=== PATIENT | female | born 1960 | race Caucasian/White ===

== ENCOUNTER 2017-04-18 13:04 | Observation (INO) | payer MEDICAID, OTHER ==
[2017-04-18 13:10] VITALS: BMI 24.7
--- NOTE | 2017-04-18 13:44 | C.PDOC ---
History Of Present Illness Patient is a 56 y/o female presents to the ED for evaluation of left sided chest pain radiating down to left shoulder and arm. Pt also reports associated nausea, and tingling sensation to left arm and fingers. Pt was given 4 Aspirin' s in field. Notes working at a [employer]. Otherwise, denies any shortness of breath, headache, fever, chills cough, vomiting, diarrhea, diaphoresis, jaw pain , back pain, lower extremity pain/swelling, recent travels, recent surgery, or recent prolonged immobilization. Time Seen by Provider: 04/18/17 13:36 Chief Complaint (Nursing): Dizziness/Lightheaded History Per: Patient History/Exam Limitations: no limitations Onset/Duration Of Symptoms: Days Current Symptoms Are (Timing): Still Present Fall Associated With With Symptoms: No Severity: Moderate Recent travel outside of the [place]: No Additional History Per: Patient Past Medical History Reviewed: Historical Data, Nursing Documentation, Vital Signs Vital Signs: Last Vital Signs Temp 98.2 F 04/18/17 13:10 Pulse 65 04/18/17 13:10 Resp 20 04/18/17 13:10 BP 103/60 04/18/17 13:10 Pulse Ox 100 04/18/17 16:20 Surgical History: Cholecystectomy Family History: States: Unknown Family Hx - Social History Hx Alcohol Use: No Hx Substance Use: No - Immunization History Hx Tetanus Toxoid Vaccination: Yes Hx Influenza Vaccination: Yes Hx Pneumococcal Vaccination: No Review Of Systems Except As Marked, All Systems Reviewed And Found Negative. Constitutional: Negative for: Fever, Chills Cardiovascular: Positive for: Chest Pain. Negative for: Palpitations Respiratory: Negative for: Cough, Shortness of Breath, Hemoptysis, Sputum Gastrointestinal: Positive for: Nausea. Negative for: Vomiting, Abdominal Pain , Diarrhea Musculoskeletal: Positive for: Shoulder Pain (left), Arm Pain (left). Negative for: Neck Pain, Back Pain Skin: Negative for: Rash, Bruising Neurological: Positive for: Other (tingling sensation to left arm and fingers). Negative for: Weakness, Numbness, Headache, Dizziness Physical Exam - Physical Exam Appears: Non-toxic, No Acute Distress Skin: Normal Color, Warm, Dry, No Rash Head: Atraumatic, Normacephalic Eye(s): bilateral: Normal Inspection, EOMI Oral Mucosa: Moist Neck: Normal ROM, Supple Chest: Symmetrical, No Deformity, No Tenderness Cardiovascular: Rhythm Regular, No Murmur Respiratory: Normal Breath Sounds, No Rales, No Rhonchi, No Wheezing Gastrointestinal/Abdominal: Soft, No Tenderness Extremity: Normal ROM (FROM of left shoulder, arm, and hand), Tenderness (Left anterior shoulder), No Pedal Edema, No Calf Tenderness, Capillary Refill (<2 sec.), No Deformity, No Swelling Extremity: Bilateral: Atraumatic, Normal ROM Neurological/Psych: Oriented x3, Normal Speech, Normal Cognition, Normal Motor, Normal Sensation ED Course And Treatment - Laboratory Results Result Diagrams: 04/18/17 13:49 04/18/17 13:49 Lab Interpretation: Normal (trop neg.) ECG: Interpreted By Me ECG Rhythm: Sinus Rhythm ECG Interpretation: Normal Rate From EC (bpm) O2 Sat by Pulse Oximetry: 100 (RA) Pulse Ox Interpretation: Normal - Radiology CXR: Interpreted by Me CXR Interpretation: Yes: No Acute Disease Progress Note: asa (given in the field) lovenox, protonix, zofran Reevaluation Time: 14:37 Reassessment Condition: Improved Medical Decision Making Medical Decision Makin: dw Dr. Pitts- Hospitalist Senior Security Analyst- ok to Tele Obs. Disposition Doctor Will See Patient In The: Hospital Counseled Patient/Family Regarding: Studies Performed, Diagnosis - Disposition Disposition: HOSPITALIZED Disposition Time: 14:38 Condition: GOOD - Clinical Impression Clinical Impression: Chest discomfort - Scribe Statement The provider has reviewed the documentation as recorded by the Barrie Venegas All medical record entries made by the Lillianibdann were at my direction and personally dictated by me. I have reviewed the chart and agree that the record accurately reflects my personal performance of the history, physical exam, medical decision making, and the department course for this patient. I have also personally directed, reviewed, and agree with the discharge instructions and disposition.
[2017-04-18 13:52] LABS: BASO # 0.1 K/uL (0.0-0.2); BASO % 1.2 % (0.0-2.0); EOS # 0.1 K/uL (0.0-0.7); EOS % 1.7 % (0.0-4.0); HEMATOCRIT 41.5 % (34.0-47.0); LYMPH # 3.3 K/uL (1.0-4.3); LYMPH % 37.2 % (20.0-40.0); MEAN CELL VOLUME 87.1 fL (81.0-99.0); MEAN CORPUSCULAR HEMOGLOBIN 28.7 pg (27.0-31.0); MEAN PLATELET VOLUME 8.7 fL (7.2-11.7); MONO # 0.4 K/uL (0.0-0.8); MONO % 4.7 % (0.0-10.0); RED CELL DISTRIBUTION WIDTH 13.3 % (11.5-14.5); WHITE BLOOD COUNT 8.8 K/uL (4.8-10.8)
[2017-04-18 14:01] LABS: CHLORIDE 103 mmol/L (98-107); POTASSIUM 3.4 mmol/L (3.6-5.2); SODIUM 139 mmol/L (132-148)
[2017-04-18 14:03] LABS: BILIRUBIN,TOTAL 0.8 mg/dL (0.2-1.3); GFR AFRICAN-AMERICAN > 60
[2017-04-18 14:04] LABS: ALB/GLOB RATIO 1.2 (1.0-2.1); ALKALINE PHOSPHATASE 73 U/L (38-126); ALT/SGPT 23 U/L (9-52); AST/SGOT 19 U/L (14-36); BLOOD UREA NITROGEN 14 mg/dL (7-17); CALCIUM 9.3 mg/dl (8.6-10.4); CARBON DIOXIDE 20 mmol/L (22-30); GLUCOSE,RANDOM 124 mg/dL (65-105); TOTAL PROTEIN 7.4 g/dL (6.3-8.3)
[2017-04-18] MEDS ORDERED: Enoxaparin 40 mg Syringe SC STA (14:32)
--- NOTE | 2017-04-18 14:58 | RAD ---
HISTORY: SOB COMPARISON: None available. TECHNIQUE: Chest, one view. FINDINGS: LUNGS: No focal consolidation. Please note that chest x-ray has limited sensitivity for the detection of pulmonary masses. PLEURA: No significant pleural effusion identified. No definite pneumothorax . CARDIOVASCULAR: The cardiomediastinal silhouette appears within normal limits of size. OSSEOUS STRUCTURES: No acute osseous abnormality identified. VISUALIZED UPPER ABDOMEN: Unremarkable. OTHER FINDINGS: None. IMPRESSION: No focal consolidation, significant pleural effusion, or definite pneumothorax identified.
[2017-04-18 15:10] LABS: URINE BILIRUBIN NEGATIVE (NEGATIVE); URINE BLOOD NEGATIVE (NEGATIVE); URINE COLOR Yellow (YELLOW); URINE GLUCOSE (UA) NORMAL (Normal); URINE KETONE NEGATIVE (NEGATIVE); URINE LEUKOCYTE ESTERASE 1+ Leu/uL (Negative); URINE PROTEIN NEGATIVE (NEGATIVE); URINE UROBILINOGEN NORMAL mg/dL (0.2-1.0); WBC URINE 14 /hpf (0-5)
[2017-04-18] MEDS ORDERED: Enoxaparin 40 mg Syringe SC SCH (17:45)
[2017-04-18] MEDS ORDERED: Iodixanol 320 MG/ML 100 ML BOTTLE IV ONE (18:14)
--- NOTE | 2017-04-18 18:23 | CP.PCM.CON ---
History of Present Illness - History of Present Illness History of Present Illness: consultation for evaluation of chest pain HPI: 56-year-old female with past medical history significant for cervical and lumbar disc herniation presented with a complaint of chest pain accompanied with lightheadedness and dizziness. Patient described having episode of nausea and emesis 2 chest pain clubbing in character with no radiation no associated exacerbation or relieving factors she felt numbness and tingling in her left forearm and hand. Had a similar episode 2 years ago denies any fever chills nausea vomiting diarrhea. Past medical history as stated above significant cervical and lumbar disc herniations past surgical history significant for cholecystectomy for and left wrist fracture family history significant for dementia asthma and diabetes mellitus. 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 Medications denies allergies spider bite. Review of Systems - Review of Systems All systems: reviewed and no additional remarkable complaints except - Constitutional Constitutional: As Per HPI - EENT Eyes: As Per HPI Nose/Mouth/Throat: As Per HPI - Breasts Breasts: As Per HPI - Cardiovascular Cardiovascular: As Per HPI, Chest Pain - Respiratory Respiratory: As Per HPI - Gastrointestinal Gastrointestinal: As Per HPI, Nausea - Genitourinary Genitourinary: As Per HPI - Reproductive: Female Reproductive:Female: As Per HPI - Menstruation Menstruation: As Per HPI - Musculoskeletal Musculoskeletal: As Per HPI - Integumentary Integumentary: As Per HPI - Neurological Neurological: As Per HPI - Psychiatric Psychiatric: As Per HPI - Endocrine Endocrine: As Per HPI - Hematologic/Lymphatic Hematologic: As Per HPI Past Patient History - Past Social History Smoking Status: Never Smoked - PSYCHIATRIC Hx Substance Use: No - SURGICAL HISTORY Hx Cholecystectomy: Yes - ANESTHESIA Hx Anesthesia: Yes Hx Anesthesia Reactions: No Meds Allergies/Adverse Reactions: Allergies Allergy/AdvReac Type Severity Reaction Status Date / Time No Known Allergies Allergy Verified 04/18/17 13:09 - Medications Medications: Current Medications Acetaminophen (Tylenol 325mg Tab) 650 mg PO Q6 PRN PRN Reason: Fever >100.4 F Docusate Sodium (Colace) 100 mg PO BID PRN PRN Reason: Constipation Enoxaparin Sodium (Lovenox) 40 mg SC DAILY [facility] Famotidine (Pepcid) 20 mg PO BID [facility] Nitroglycerin (Nitrostat Sl Tab) 0.4 mg SL Q5M PRN PRN Reason: Pain, moderate (4-7) Ondansetron HCl (Zofran Inj) 4 mg IVP Q6 PRN PRN Reason: Nausea/Vomiting Sucralfate (Carafate Tab) 1 gm PO BID [facility] Physical Exam - Constitutional Appears: Well - Head Exam Head Exam: ATRAUMATIC, NORMAL INSPECTION, NORMOCEPHALIC - Eye Exam Eye Exam: EOMI, Normal appearance, PERRL Pupil Exam: NORMAL ACCOMODATION, PERRL - ENT Exam ENT Exam: Mucous Membranes Moist, Normal Exam - Neck Exam Neck exam: Positive for: Normal Inspection - Respiratory Exam Respiratory Exam: Clear to Auscultation Bilateral, NORMAL BREATHING PATTERN - Cardiovascular Exam Cardiovascular Exam: REGULAR RHYTHM, RRR, +S1, +S2, Systolic Murmur - GI/Abdominal Exam GI & Abdominal Exam: Normal Bowel Sounds, Soft. absent: Tenderness - Exam Bimanual exam: NORMAL BIMANUAL EXAM - Extremities Exam Extremities exam: Positive for: normal inspection - Back Exam Back exam: NORMAL INSPECTION - Neurological Exam Neurological exam: Alert, CN II-XII Intact, Normal Gait, Oriented x3, Reflexes Normal - Psychiatric Exam Psychiatric exam: Normal Affect, Normal Mood - Skin Skin Exam: Dry, Intact, Normal Color, Warm Results - Vital Signs Recent Vital Signs: Last Vital Signs Temp 98.2 F 04/18/17 13:10 Pulse 69 04/18/17 17:14 Resp 17 04/18/17 17:14 BP 122/62 04/18/17 17:14 Pulse Ox 98 04/18/17 17:14 - Labs Result Diagrams: 04/19/17 01:27 04/19/17 01:27 Labs: Laboratory Results - last 24 hr 04/18/17 04/18/17 14:51 14:51 Urine Color Yellow Urine Clarity Hazy Urine pH 7.0 Ur Specific [place] 1.016 Urine Protein Negative Urine Glucose (UA) Normal Urine Ketones Negative Urine Blood Negative Urine Nitrate Positive H Urine Bilirubin Negative Urine Urobilinogen Normal Ur Leukocyte Esterase 1+ H Urine WBC (Auto) 14 H Amorphous Sediment Rare H Urine Opiates Screen Negative Urine Methadone Screen Negative Ur Barbiturates Screen Negative Ur Phencyclidine Scrn Negative Ur Amphetamines Screen Negative U Benzodiazepines Scrn Negative U Oth Cocaine Metabols Negative U Cannabinoids Screen Negative Assessment & Plan (1) Chest discomfort Assessment and Plan: atypical features ACS ruled out with serial enzymes x 3 EKG - NSR no acute ST-T wave changes stable to dc home outpt f/u in 1-2 weeks for stress testing Status: Acute
[2017-04-18 18:49] VITALS: O2SAT 97
--- NOTE | 2017-04-18 19:13 | CT ---
EXAM: CT Angiography Chest With Intravenous Contrast EXAM DATE/TIME: Exam ordered 04/18/2017 5:33 PM CLINICAL HISTORY: 56 years old, female; Pain and signs and symptoms; Chest pressure; Additional info: R/O dissection TECHNIQUE: Axial computed tomographic angiography images of the chest with intravenous contrast using pulmonary embolism protocol. All CT scans at this facility use one or more dose reduction techniques, viz.: automated exposure control; ma/kV adjustment per patient size (including targeted exams where dose is matched to indication; i.e. head); or iterative reconstruction technique. MIP reconstructed images were created and reviewed. Coronal and sagittal reformatted images were created and reviewed. CONTRAST: 100 mL of visipaque 320 administered intravenously. COMPARISON: No relevant prior studies available. FINDINGS: Pulmonary arteries: Unremarkable. No pulmonary embolism. Aorta: No acute findings. No thoracic aortic aneurysm. Lungs: Coarse linear density at the left lung base suggests an area of discoid atelectasis or scar. No mass. Pleural space: Unremarkable. No significant effusion. No pneumothorax. Heart: The small bowel pericardial fluid/thickening is noted. No evidence of RV dysfunction. Mediastinum: There is a small hiatal hernia. Bones/joints: No acute fracture. No dislocation. Soft tissues: Unremarkable. Lymph nodes: Unremarkable. No enlarged lymph nodes. Gallbladder and bile ducts: Surgical clips are seen in the gallbladder fossa. IMPRESSION: 1. No evidence of aortic dissection. No evidence of pulmonary embolism. Normal CTA the chest. 2. Discoid atelectasis at the left base
--- NOTE | 2017-04-18 19:37 | CP.PCM.HP ---
History of Present Illness - History of Present Illness History of Present Illness: PGY [address] Steve 56 Female presents to ED with chest pain. She reported that she was feeling light headed and dizzy so she sat down to eat and the chest pain began after she ate. The patient reported nausea and vomiting nonbloody emesis twice. Pt describes the chest pain as throbbing in nature with no radiation. She denies taking anything for the pain and does not report exacerbating the pain. The patient also reports feeling cold during the episode and had numbness and tingling in her left forearm and hand. The patient reports a similar episode occurring 3 years ago. Patient reports N/V, diaphoresis, weakness, dizziness, double vision, feeling cold, cloudy urine. Patient denies fever, chills, D/C, SOB, cough, changes in speech, headache, confusion, rash, recent falls, trauma, no sick contacts, no recent travel. PMH: Cervical and Lumbar disc herniations (C2,C3. L5 and ??? 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 Drinks ocassionally. Not sexually active. Med: denies All: spider bite Immunizations: up to date Present on Admission - Present on Admission Any Indicators Present on Admission: No History of DVT/PE: No History of Uncontrolled Diabetes: No Urinary Catheter: No Decubitus Ulcer Present: No History Surgical Site Infection Following: None Review of Systems - Constitutional Constitutional: As Per HPI - EENT Eyes: As Per HPI Ears: As Per HPI - Breasts Breasts: As Per HPI - Cardiovascular Cardiovascular: As Per HPI - Respiratory Respiratory: As Per HPI - Gastrointestinal Gastrointestinal: As Per HPI - Genitourinary Genitourinary: As Per HPI - Reproductive: Female Reproductive:Female: As Per HPI - Menstruation Menstruation: As Per HPI - Musculoskeletal Musculoskeletal: As Per HPI - Integumentary Integumentary: As Per HPI - Neurological Neurological: As Per HPI - Psychiatric Psychiatric: As Per HPI - Endocrine Endocrine: As Per HPI - Hematologic/Lymphatic Hematologic: As Per HPI Past Patient History - Past Social History Smoking Status: Never Smoked - PSYCHIATRIC Hx Substance Use: No - SURGICAL HISTORY Hx Cholecystectomy: Yes - ANESTHESIA Hx Anesthesia: Yes Hx Anesthesia Reactions: No Meds Allergies/Adverse Reactions: Allergies Allergy/AdvReac Type Severity Reaction Status Date / Time No Known Allergies Allergy Verified 04/18/17 13:09 Physical Exam - Constitutional Appears: Well, Non-toxic, No Acute Distress - Head Exam Head Exam: ATRAUMATIC, NORMAL INSPECTION, NORMOCEPHALIC - Eye Exam Eye Exam: EOMI - ENT Exam ENT Exam: Mucous Membranes Moist - Respiratory Exam Respiratory Exam: Clear to Auscultation Bilateral. absent: Rales, Rhonchi, Wheezes, Stridor - Cardiovascular Exam Cardiovascular Exam: REGULAR RHYTHM. absent: Systolic Murmur - GI/Abdominal Exam GI & Abdominal Exam: Normal Bowel Sounds, Soft, Tenderness (mild in LLQ). absent: Distended - Neurological Exam Neurological exam: Alert, CN II-XII Intact, Normal Gait - Psychiatric Exam Psychiatric exam: Anxious, Normal Affect, Normal Mood - Skin Skin Exam: Dry, Normal Color, Warm Results - Vital Signs Recent Vital Signs: Last Vital Signs Temp 97 F L 04/18/17 18:00 Pulse 64 04/18/17 18:00 Resp 20 04/18/17 18:00 BP 112/73 04/18/17 18:00 Pulse Ox 97 04/18/17 18:00 - Labs Result Diagrams: 04/18/17 13:49 04/18/17 13:49 Labs: Laboratory Results - last 24 hr 04/18/17 04/18/17 14:51 14:51 Urine Color Yellow Urine Clarity Hazy Urine pH 7.0 Ur Specific [place] 1.016 Urine Protein Negative Urine Glucose (UA) Normal Urine Ketones Negative Urine Blood Negative Urine Nitrate Positive H Urine Bilirubin Negative Urine Urobilinogen Normal Ur Leukocyte Esterase 1+ H Urine WBC (Auto) 14 H Amorphous Sediment Rare H Urine Opiates Screen Negative Urine Methadone Screen Negative Ur Barbiturates Screen Negative Ur Phencyclidine Scrn Negative Ur Amphetamines Screen Negative U Benzodiazepines Scrn Negative U Oth Cocaine Metabols Negative U Cannabinoids Screen Negative Assessment & Plan - Assessment and Plan (Free Text) Assessment: Chest Pain * R/O ACS * F/U ROMIs * F/U EKG * Cardio (Pranav) - F/U reccs * F/U Lipid Panel * GERD * Protonix * Sucralfate * R/O Dissection * F/U CTA Hypoglycemia * F/U A1c PPX * Lovenox 40sc QD * Protonix - Date & Time Date: 04/18/17 Time: 19:37
[2017-04-18 20:39] LABS: CHOLESTEROL 182 mg/dL (0-199)
[2017-04-18 20:55] LABS: T4 7.37 ug/dL (5.5-11.0)
[2017-04-18 21:09] LABS: THYROID STIMULATING HORMONE 0.38 mIU/L (0.46-4.68)
[2017-04-19 01:29] LABS: BASO # 0.1 K/uL (0.0-0.2); BASO % 0.6 % (0.0-2.0); EOS # 0.2 K/uL (0.0-0.7); EOS % 2.1 % (0.0-4.0); HEMATOCRIT 39.7 % (34.0-47.0); LYMPH # 4.2 K/uL (1.0-4.3); LYMPH % 42.7 % (20.0-40.0); MEAN CELL VOLUME 87.3 fL (81.0-99.0); MEAN CORPUSCULAR HEMOGLOBIN 29.1 pg (27.0-31.0); MEAN CORPUSCULAR HGB CONC 33.3 g/dL (33.0-37.0); MEAN PLATELET VOLUME 8.3 fL (7.2-11.7); MONO # 0.4 K/uL (0.0-0.8); MONO % 4.5 % (0.0-10.0); RED CELL DISTRIBUTION WIDTH 13.4 % (11.5-14.5); WHITE BLOOD COUNT 9.9 K/uL (4.8-10.8)
[2017-04-19 01:42] LABS: ALB/GLOB RATIO 1.2 (1.0-2.1); ALKALINE PHOSPHATASE 70 U/L (38-126); ALT/SGPT 25 U/L (9-52); AST/SGOT 17 U/L (14-36); BILIRUBIN,TOTAL 0.4 mg/dL (0.2-1.3); BLOOD UREA NITROGEN 14 mg/dL (7-17); CALCIUM 9.1 mg/dl (8.6-10.4); CARBON DIOXIDE 24 mmol/L (22-30); CHLORIDE 104 mmol/L (98-107); GFR AFRICAN-AMERICAN > 60; GLUCOSE,RANDOM 89 mg/dL (65-105); POTASSIUM 3.7 mmol/L (3.6-5.2); SODIUM 137 mmol/L (132-148); TOTAL PROTEIN 6.7 g/dL (6.3-8.3)
--- NOTE | 2017-04-19 08:33 | CP.PCM.PN ---
Objective - Vital Signs/Intake and Output Vital Signs (last 24 hours): Temp Pulse Resp BP Pulse Ox 98 F 60 20 121/66 97 04/19/17 03:41 04/19/17 03:41 04/18/17 23:05 04/19/17 03:41 04/18/17 23:05 Intake and Output: 04/19/17 04/19/17 06:59 18:59 Intake Total 10 Balance 10 - Medications Medications: Current Medications Acetaminophen (Tylenol 325mg Tab) 650 mg PO Q6 PRN PRN Reason: Fever >100.4 F Docusate Sodium (Colace) 100 mg PO BID PRN PRN Reason: Constipation Enoxaparin Sodium (Lovenox) 40 mg SC DAILY [facility] Famotidine (Pepcid) 20 mg PO BID [facility] Last Admin: 04/18/17 19:19 Dose: Not Given Nitroglycerin (Nitrostat Sl Tab) 0.4 mg SL Q5M PRN PRN Reason: Pain, moderate (4-7) Ondansetron HCl (Zofran Inj) 4 mg IVP Q6 PRN PRN Reason: Nausea/Vomiting Sucralfate (Carafate Tab) 1 gm PO BID [facility] Last Admin: 04/18/17 19:19 Dose: 1 gm - Labs Labs: 04/19/17 01:27 04/19/17 01:27 PT 11.5 SECONDS (9.7-12.2) 04/18/17 20:18 INR 1.0 04/18/17 20:18 APTT 42 SECONDS (21-34) H 04/18/17 20:18
[2017-04-19 08:55] VITALS: BP 108/66; PULSE 80; RESP 18; TEMP 98.6
[2017-04-19] MEDS ORDERED: Enoxaparin 40 mg Syringe SC SCH (10:00)
[2017-04-19 12:24] LABS: THYROID STIMULATING HORMONE 0.81 mIU/L (0.46-4.68)
--- NOTE | 2017-04-19 16:00 | CP.PCM.DIS ---
<Baljinder Pitts - Last Filed: 04/19/17 17:29> Provider - Provider Date of Admission: 04/18/17 14:36 Attending physician: Baljinder Pitts MD Hospital Course - Lab Results Lab Results: Most Recent Lab Values WBC 9.9 K/uL (4.8-10.8) 04/19/17 01:27 RBC 4.55 Mil/uL (3.80-5.20) 04/19/17 01:27 Hgb 13.2 g/dL (11.0-16.0) 04/19/17 01:27 Hct 39.7 % (34.0-47.0) 04/19/17 01:27 MCV 87.3 fL (81.0-99.0) 04/19/17 01:27 MCH 29.1 pg (27.0-31.0) 04/19/17 01:27 MCHC 33.3 g/dL (33.0-37.0) 04/19/17 01:27 RDW 13.4 % (11.5-14.5) 04/19/17 01:27 Plt Count 316 K/uL (130-400) 04/19/17 01:27 MPV 8.3 fL (7.2-11.7) 04/19/17 01:27 Neut % (Auto) 50.1 % (50.0-75.0) 04/19/17 01:27 Lymph % (Auto) 42.7 % (20.0-40.0) H 04/19/17 01:27 [place] % (Auto) 4.5 % (0.0-10.0) 04/19/17 01:27 Eos % (Auto) 2.1 % (0.0-4.0) 04/19/17 01:27 Baso % (Auto) 0.6 % (0.0-2.0) 04/19/17 01:27 Neut # 5.0 K/uL (1.8-7.0) 04/19/17 01:27 Lymph # 4.2 K/uL (1.0-4.3) 04/19/17 01:27 [place] # 0.4 K/uL (0.0-0.8) 04/19/17 01:27 Eos # 0.2 K/uL (0.0-0.7) 04/19/17 01:27 Baso # 0.1 K/uL (0.0-0.2) 04/19/17 01:27 PT 11.5 SECONDS (9.7-12.2) 04/18/17 20:18 INR 1.0 04/18/17 20:18 APTT 42 SECONDS (21-34) H 04/18/17 20:18 Sodium 137 mmol/L (132-148) 04/19/17 01:27 Potassium 3.7 mmol/L (3.6-5.2) 04/19/17 01:27 Chloride 104 mmol/L (98-107) 04/19/17 01:27 Carbon Dioxide 24 mmol/L (22-30) 04/19/17 01:27 Anion Gap 13 (10-20) 04/19/17 01:27 BUN 14 mg/dL (7-17) 04/19/17 01:27 Creatinine 0.7 MG/DL (0.7-1.2) 04/19/17 01:27 Est GFR ( Amer) > 60 04/19/17 01:27 Est GFR (Non-Af Amer) > 60 04/19/17 01:27 Random Glucose 89 mg/dL (65-105) 04/19/17 01:27 Hemoglobin A1c 5.6 % (4.2-6.5) 04/18/17 20:18 Calcium 9.1 mg/dl (8.6-10.4) 04/19/17 01:27 Total Bilirubin 0.4 mg/dL (0.2-1.3) 04/19/17 01:27 AST 17 U/L (14-36) 04/19/17 01:27 ALT 25 U/L (9-52) 04/19/17 01:27 Alkaline Phosphatase 70 U/L (38-126) 04/19/17 01:27 Troponin I < 0.0120 ng/mL (0.00-0.120) 04/19/17 11:20 Total Protein 6.7 g/dL (6.3-8.3) 04/19/17 01:27 Albumin 3.7 g/dL (3.5-5.0) 04/19/17 01:27 Globulin 3.0 gm/dL (2.2-3.9) 04/19/17 01:27 Albumin/Globulin Ratio 1.2 (1.0-2.1) 04/19/17 01:27 Triglycerides 52 mg/dL (0-149) 04/18/17 20:18 Cholesterol 182 mg/dL (0-199) 04/18/17 20:18 LDL Cholesterol Direct 90 mg/dL (0-129) 04/18/17 20:18 HDL Cholesterol 86 mg/dL (30-70) H 04/18/17 20:18 Free T4 0.82 ng/dL (0.78-2.19) 04/19/17 11:20 Thyroxine (T4) 7.37 ug/dL (5.5-11.0) 04/18/17 20:18 TSH 3rd Generation 0.81 mIU/L (0.46-4.68) 04/19/17 11:20 Urine Color Yellow (YELLOW) 04/18/17 14:51 Urine Clarity Hazy (Clear) 04/18/17 14:51 Urine pH 7.0 (5.0-8.0) 04/18/17 14:51 Ur Specific [place] 1.016 (1.003-1.030) 04/18/17 14:51 Urine Protein Negative mg/dL (NEGATIVE) 04/18/17 14:51 Urine Glucose (UA) Normal mg/dL (Normal) 04/18/17 14:51 Urine Ketones Negative mg/dL (NEGATIVE) 04/18/17 14:51 Urine Blood Negative (NEGATIVE) 04/18/17 14:51 Urine Nitrate Positive (NEGATIVE) H 04/18/17 14:51 Urine Bilirubin Negative (NEGATIVE) 04/18/17 14:51 Urine Urobilinogen Normal mg/dL (0.2-1.0) 04/18/17 14:51 Ur Leukocyte Esterase 1+ [place]/uL (Negative) H 04/18/17 14:51 Urine WBC (Auto) 14 /hpf (0-5) H 04/18/17 14:51 Amorphous Sediment Rare /ul (<OCC) H 04/18/17 14:51 Urine Opiates Screen Negative (NEGATIVE) 04/18/17 14:51 Urine Methadone Screen Negative (NEGATIVE) 04/18/17 14:51 Ur Barbiturates Screen Negative (NEGATIVE) 04/18/17 14:51 Ur Phencyclidine Scrn Negative (NEGATIVE) 04/18/17 14:51 Ur Amphetamines Screen Negative (NEGATIVE) 04/18/17 14:51 U Benzodiazepines Scrn Negative (NEGATIVE) 04/18/17 14:51 U Oth Cocaine Metabols Negative (NEGATIVE) 04/18/17 14:51 U Cannabinoids Screen Negative (NEGATIVE) 04/18/17 14:51 Discharge Plan - Follow Up Plan Condition: GOOD Disposition: HOME/ ROUTINE Instructions: Angina (DC), Chest Pain (DC) Additional Instructions: Patient to be discharged home per Dr. Pitts and Dr. Rock. Patient to continue all his home medication as previously prescribed. Patient will need to follow up with her own PMD or [facility] for post hospital follow up and primary care. She will need a stress test as an outpatient. She will return to the ED when symptoms return or worsen. Referrals: [facility] [Outside] Faraz Rock MD [Staff Provider] - Attending/Attestation - Attestation I have personally seen and examined this patient.: Yes I have fully participated in the care of the patient.: Yes I have reviewed all pertinent clinical information, including history, physical exam and plan: Yes Notes (Text): 04/19/17 17:30 Patient was seen and examined at bedside Patient is cleared by cardiology for discharge Follow-up as outpatient with PMD and cardiology I agree with the discharge note by the resident. <Lyndon Crawford - Last Filed: 04/19/17 22:22> Provider - Provider Date of Admission: 04/18/17 14:36 Attending physician: Baljinder Pitts MD Consults: Dr. Rock Time Spent in preparation of Discharge (in minutes): 45 Hospital Course - Lab Results Lab Results: Most Recent Lab Values WBC 9.9 K/uL (4.8-10.8) 04/19/17 01:27 RBC 4.55 Mil/uL (3.80-5.20) 04/19/17 01:27 Hgb 13.2 g/dL (11.0-16.0) 04/19/17 01:27 Hct 39.7 % (34.0-47.0) 04/19/17 01:27 MCV 87.3 fL (81.0-99.0) 04/19/17 01:27 MCH 29.1 pg (27.0-31.0) 04/19/17 01:27 MCHC 33.3 g/dL (33.0-37.0) 04/19/17 01:27 RDW 13.4 % (11.5-14.5) 04/19/17 01:27 Plt Count 316 K/uL (130-400) 04/19/17 01:27 MPV 8.3 fL (7.2-11.7) 04/19/17 01:27 Neut % (Auto) 50.1 % (50.0-75.0) 04/19/17 01:27 Lymph % (Auto) 42.7 % (20.0-40.0) H 04/19/17:27 [place] % (Auto) 4.5 % (0.0-10.0) 04/19/17 01:27 Eos % (Auto) 2.1 % (0.0-4.0) 04/19/17 01:27 Baso % (Auto) 0.6 % (0.0-2.0) 04/19/17 01:27 Neut # 5.0 K/uL (1.8-7.0) 04/19/17 01:27 Lymph # 4.2 K/uL (1.0-4.3) 04/19/17 01:27 [place] # 0.4 K/uL (0.0-0.8) 04/19/17 01:27 Eos # 0.2 K/uL (0.0-0.7) 04/19/17 01:27 Baso # 0.1 K/uL (0.0-0.2) 04/19/17 01:27 PT 11.5 SECONDS (9.7-12.2) 04/18/17 20:18 INR 1.0 04/18/17 20:18 APTT 42 SECONDS (21-34) H 04/18/17 20:18 Sodium 137 mmol/L (132-148) 04/19/17 01:27 Potassium 3.7 mmol/L (3.6-5.2) 04/19/17 01:27 Chloride 104 mmol/L (98-107) 04/19/17 01:27 Carbon Dioxide 24 mmol/L (22-30) 04/19/17 01:27 Anion Gap 13 (10-20) 04/19/17 01:27 BUN 14 mg/dL (7-17) 04/19/17 01:27 Creatinine 0.7 MG/DL (0.7-1.2) 04/19/17 01:27 Est GFR ( Amer) > 60 04/19/17 01:27 Est GFR (Non-Af Amer) > 60 04/19/17 01:27 Random Glucose 89 mg/dL (65-105) 04/19/17 01:27 Hemoglobin A1c 5.6 % (4.2-6.5) 04/18/17 20:18 Calcium 9.1 mg/dl (8.6-10.4) 04/19/17 01:27 Total Bilirubin 0.4 mg/dL (0.2-1.3) 04/19/17 01:27 AST 17 U/L (14-36) 04/19/17 01:27 ALT 25 U/L (9-52) 04/19/17 01:27 Alkaline Phosphatase 70 U/L (38-126) 04/19/17 01:27 Troponin I < 0.0120 ng/mL (0.00-0.120) 04/19/17 11:20 Total Protein 6.7 g/dL (6.3-8.3) 04/19/17 01:27 Albumin 3.7 g/dL (3.5-5.0) 04/19/17 01:27 Globulin 3.0 gm/dL (2.2-3.9) 04/19/17 01:27 Albumin/Globulin Ratio 1.2 (1.0-2.1) 04/19/17 01:27 Triglycerides 52 mg/dL (0-149) 04/18/17 20:18 Cholesterol 182 mg/dL (0-199) 04/18/17 20:18 LDL Cholesterol Direct 90 mg/dL (0-129) 04/18/17 20:18 HDL Cholesterol 86 mg/dL (30-70) H 04/18/17 20:18 Free T4 0.82 ng/dL (0.78-2.19) 04/19/17 11:20 Thyroxine (T4) 7.37 ug/dL (5.5-11.0) 04/18/17 20:18 TSH 3rd Generation 0.81 mIU/L (0.46-4.68) 04/19/17 11:20 Urine Color Yellow (YELLOW) 04/18/17 14:51 Urine Clarity Hazy (Clear) 04/18/17 14:51 Urine pH 7.0 (5.0-8.0) 04/18/17 14:51 Ur Specific [place] 1.016 (1.003-1.030) 04/18/17 14:51 Urine Protein Negative mg/dL (NEGATIVE) 04/18/17 14:51 Urine Glucose (UA) Normal mg/dL (Normal) 04/18/17 14:51 Urine Ketones Negative mg/dL (NEGATIVE) 04/18/17 14:51 Urine Blood Negative (NEGATIVE) 04/18/17 14:51 Urine Nitrate Positive (NEGATIVE) H 04/18/17 14:51 Urine Bilirubin Negative (NEGATIVE) 04/18/17 14:51 Urine Urobilinogen Normal mg/dL (0.2-1.0) 04/18/17 14:51 Ur Leukocyte Esterase 1+ [place]/uL (Negative) H 04/18/17 14:51 Urine WBC (Auto) 14 /hpf (0-5) H 04/18/17 14:51 Amorphous Sediment Rare /ul (<OCC) H 04/18/17 14:51 Urine Opiates Screen Negative (NEGATIVE) 04/18/17 14:51 Urine Methadone Screen Negative (NEGATIVE) 04/18/17 14:51 Ur Barbiturates Screen Negative (NEGATIVE) 04/18/17 14:51 Ur Phencyclidine Scrn Negative (NEGATIVE) 04/18/17 14:51 Ur Amphetamines Screen Negative (NEGATIVE) 04/18/17 14:51 U Benzodiazepines Scrn Negative (NEGATIVE) 04/18/17 14:51 U Oth Cocaine Metabols Negative (NEGATIVE) 04/18/17 14:51 U Cannabinoids Screen Negative (NEGATIVE) 04/18/17 14:51 - Hospital Course Hospital Course: 56 Female presents to ED with chest pain. She reported that she was feeling light headed and dizzy so she sat down to eat and the chest pain began after she ate. The patient reported nausea and vomiting nonbloody emesis twice. Pt describes the chest pain as throbbing in nature with no radiation. She denies taking anything for the pain and does not report exacerbating the pain. The patient also reports feeling cold during the episode and had numbness and tingling in her left forearm and hand. The patient reports a similar episode occurring 3 years ago. Patient reports N/V, diaphoresis, weakness, dizziness, double vision, feeling cold, cloudy urine. Patient denies fever, chills, D/C, SOB, cough, changes in speech, headache, confusion, rash, recent falls, trauma, no sick contacts, no recent travel. Hospital course: Patient was admitted to [facility] for chest pain, she had serial cardiac enzymes all negative. She also had a cardiology consult as well. She had lab work preformed please see emr for results. She was discharged home today to follow up with PMD and will need an outpatient stress test. Discharge Plan: Patient to be discharged home per Dr. Pitts and Dr. Rock. Patient to continue all his home medication as previously prescribed. Patient will need to follow up with her own PMD or [facility] for post hospital follow up and primary care. She will need a stress test as an outpatient. She will return to the ED when symptoms return or worsen. Discharge diagnosis: Chest Pain Discharge Exam - Head Exam Head Exam: ATRAUMATIC, NORMAL INSPECTION, NORMOCEPHALIC
--- NOTE | 2017-04-21 23:56 | CARD ---
APPROVED REPORT EKG Measurement Heart [id number] <Conclusion> Normal sinus rhythm Normal ECG
--- NOTE | 2017-04-22 12:07 | VASCLAB ---
PROCEDURE: HISTORY: R/O carotid dissection COMPARISON: None available. TECHNIQUE: Grayscale and duplex Doppler evaluation of the cervical carotid and vertebral arteries were performed. The common carotid, carotid bifurcations and cervical Internal Carotid Artery (ICA) and proximal External Carotid Artery (ECA) were evaluated. The vertebral arteries were evaluated for gross patency and flow direction. Report prepared by Everardo Fabian, BS, RVT FINDINGS: RIGHT CAROTID ARTERIES: 1. Common Carotid Artery: No significant focal plaque formation of the right common carotid artery. Maximum Peak Systolic velocity: 102 cm/sec: End-diastolic velocity 28 cm/sec. 2. Carotid Bifurcation: plaque formation. Maximum Peak Systolic velocity: 80 cm/sec: End-diastolic velocity 24 cm/sec. 3. Internal Carotid Artery: Plaque description: 3.1. Proximal Segment: Peak systolic velocity 83 cm/sec: End-diastolic velocity 25 cm/sec - % stenosis 0-15% 3.2. Middle Segment: Peak systolic velocity 79 cm/sec: End-diastolic velocity 29 cm/sec - % stenosis 0-15% 3.3. Distal Segment: Peak systolic velocity 92 cm/sec: End-diastolic velocity 31 cm/sec - % stenosis 0-15% 4. External Carotid Artery: No significant focal plaque formation. Peak systolic velocity 99 cm/sec 5. ICA/CCA Ratio: 0.9 LEFT CAROTID ARTERIES: 1. Common Carotid Artery: No significant focal plaque formation of the left common carotid artery. Maximum Peak Systolic velocity: 109 cm/sec: End-diastolic velocity 29 cm/sec. 2. Carotid Bifurcation: plaque formation. Maximum Peak Systolic velocity: 92 cm/sec: End-diastolic velocity 27 cm/sec. 3. Internal Carotid Artery: Plaque description: 3.1. Proximal Segment: Peak systolic velocity 97 cm/sec: End-diastolic velocity 39 cm/sec - % stenosis 0-15% 3.2. Middle Segment: Peak systolic velocity 107 cm/sec: End-diastolic velocity 37 cm/sec - % stenosis 0-15% 3.3. Distal Segment: Peak systolic velocity 79 cm/sec: End-diastolic velocity 32 cm/sec - % stenosis 0-15% 4. External Carotid Artery: No significant focal plaque formation. Peak systolic velocity 78 cm/sec 5. ICA/CCA Ratio: 1.0 VERTEBRAL ARTERIES: 1. Right Vertebral Artery: The right vertebral artery flow direction is antegrade. 2. Left Vertebral Artery: The left vertebral artery flow direction is antegrade. OTHER FINDINGS: 1. Right Brachial Blood pressure: 106 mmHg. 2. Left Brachial Blood pressure: 100 mmHg. IMPRESSION: RIGHT: Duplex scan does not suggest hemodynamically significant stenosis of the right extracranial carotid arteries. LEFT: Duplex scan does not suggest hemodynamically significant stenosis of the left extracranial carotid arteries.
== END 2017-04-19 14:40 | disposition home or self-care (01) ==
LOC: C.ER 13:04 → C.9E 14:36 → C.6T 17:03
PROVIDERS: ADMIT Internal Medicine; ATTEND Internal Medicine
DX: R07.89 Other chest pain (principal); K21.9 Gastro-esophageal reflux disease without esophagitis; E16.2 Hypoglycemia, unspecified
CPT/HCPCS: 36415; 71010; 71275; 80053; 80061; 80324; 80345; 80346; 80349; 80353; 80358; 80361; 81001; 83036; 83992; 84436; 84439; 84443; 84484; 85025; 85610; 85730; 93005; 93880; 96372; 96374; 96375; 99285; C9113; G0378; J1650; J2405; Q9967

== ENCOUNTER 2018-09-30 16:25 | Outpatient (CLI) | payer MEDICAID | END 2018-09-30 16:26 | disposition home or self-care (01) | LOC: C.MRIC 16:25 | DX: M48.02 Spinal stenosis, cervical region (principal) ==

== ENCOUNTER 2018-10-16 16:13 | Outpatient (CLI) | payer MEDICAID | END 2018-10-16 16:14 | disposition home or self-care (01) | LOC: C.DEXAIC 16:13 | DX: Z13.820 Encounter for screening for osteoporosis (principal) ==

== ENCOUNTER 2018-11-25 15:45 | Outpatient (CLI) | payer MEDICAID | END 2018-11-25 15:46 | disposition home or self-care (01) | LOC: C.RADIC 15:45 | DX: M25.562 Pain in left knee (principal) ==